=== PATIENT | male | born 1970 | race American Indian/Alaskan Native ===

== ENCOUNTER 2023-08-09 12:05 | Inpatient (IN) | payer OTHER ==
[2023-08-09] MEDS ORDERED: DICYCLOMINE HCL 10 MG CAPSULE PO PRN (13:12)
[2023-08-09] MEDS ORDERED: NALOXONE HCL (KLOXXADO) 8 MG SPRAY NS PRN (13:12)
[2023-08-09] MEDS ORDERED: NALOXONE HCL 0.4 MG/ML VIAL IM PRN (13:12)
[2023-08-09] MEDS ORDERED: guaiFENesin 600 MG TABLET.ER (FP) PO PRN (13:12)
[2023-08-09] MEDS ORDERED: IBUPROFEN 600 MG TABLET (FP) PO PRN (13:12)
[2023-08-09] MEDS ORDERED: IBUPROFEN 400 MG TABLET (FP) PO PRN (13:12)
[2023-08-09] MEDS ORDERED: BISMUTH SUBSALICYLATE 524 MG/30 ML PO PRN (13:12)
[2023-08-09] MEDS ORDERED: ONDANSETRON *ODT* 4 MG TABLET SL PRN (13:12)
[2023-08-09] MEDS ORDERED: ACETAMINOPHEN 325 MG TABLET (FP) PO PRN (13:12)
[2023-08-09] MEDS ORDERED: POLYETHYLENE GLYCOL (HEALTHYLAX) 3350 17 GM PACKET PO PRN (13:12)
[2023-08-09] MEDS ORDERED: MAGNESIUM HYDROX 2400MG/30ML ORAL SUSPENSION 30 ML CUP PO PRN (13:12)
[2023-08-09] MEDS ORDERED: LOPERAMIDE HCL 2 MG CAPSULE PO PRN (13:12)
[2023-08-09] MEDS ORDERED: BENZONATATE 200 MG CAPSULE PO PRN (13:12)
[2023-08-09] MEDS ORDERED: BENZOCAINE/MENTHOL (CHLORASEPTIC ) LOZENGE MM PRN (13:12)
[2023-08-09] MEDS ORDERED: MAG HYDROX/AL HYDROX/SIMETH 30 ML UNIT-DOSE CUP PO PRN (13:12)
[2023-08-09 13:26] VITALS: BMI 18.7
[2023-08-09] MEDS: PRENATAL VITAMINS W/ FOLIC ACID TABLET (FP) PO SCH (14:48)
[2023-08-09] MEDS: METHOCARBAMOL 500 MG TABLET PO PRN (22:12)
[2023-08-09] MEDS: THIAMINE HCL 100 MG TABLET (FP) PO SCH (22:12)
[2023-08-09] MEDS: hydrOXYzine PAMOATE 25 MG CAPSULE (FP) PO PRN (22:12)
[2023-08-09] MEDS: MELATONIN 5 MG TABLETS PO SCH (22:12)
[2023-08-10] MEDS ORDERED: diazePAM 5 MG TABLET PO PRN (10:25)
[2023-08-10 10:26] LABS: HEMATOCRIT 35.6 % (35.4-49); MCH 30.9 pg (25.7-33.7); MCHC 33.6 g/dl (32.0-35.9); MEAN PLT VOLUME 8.8 fl (7.5-11.1); PLATELET COUNT 237 10^3/uL (134-434); RBC 3.87 M/mm3 (4.00-5.60); RDW 13.8 % (11.9-15.9); WHITE BLOOD COUNT 6.8 K/mm3 (4.0-10.0)
[2023-08-10] MEDS: PRENATAL VITAMINS W/ FOLIC ACID TABLET (FP) PO SCH (10:31)
[2023-08-10] MEDS: diazePAM 5 MG TABLET PO SCH ×3 (11:03→22:25)
[2023-08-10 11:04] LABS: POTASSIUM 3.4 mmol/L (3.5-5.1)
[2023-08-10] MEDS: METHOCARBAMOL 500 MG TABLET PO PRN (11:04)
[2023-08-10 11:07] LABS: CALCIUM 8.9 mg/dL (8.5-10.1)
[2023-08-10 11:08] LABS: BLOOD UREA NITROGEN 20.1 mg/dL (7-18)
[2023-08-10 11:11] LABS: CREATININE 1.1 mg/dL (0.55-1.3)
[2023-08-10 11:12] LABS: BILIRUBIN,TOTAL 0.3 mg/dL (0.2-1); TOT PROT 5.6 g/dl (6.4-8.2)
[2023-08-10] MEDS: POTASSIUM CHLORIDE ORAL LIQUID 20 MEQ/15 ML PO SCH ×2 (14:08→22:24)
[2023-08-10] MEDS ORDERED: NAPROXEN 500 MG TABLET PO PRN (14:29)
[2023-08-10] MEDS: MELATONIN 5 MG TABLETS PO SCH (22:24)
[2023-08-10] MEDS: THIAMINE HCL 100 MG TABLET (FP) PO SCH (22:25)
[2023-08-11] MEDS: diazePAM 5 MG TABLET PO SCH ×4 (06:17→22:27)
[2023-08-11 08:52] LABS: POTASSIUM 3.6 mmol/L (3.5-5.1)
[2023-08-11 08:58] LABS: BLOOD UREA NITROGEN 14.6 mg/dL (7-18); CALCIUM 8.2 mg/dL (8.5-10.1)
[2023-08-11 09:01] LABS: CREATININE 0.9 mg/dL (0.55-1.3)
[2023-08-11] MEDS: PRENATAL VITAMINS W/ FOLIC ACID TABLET (FP) PO SCH (10:36)
[2023-08-11] MEDS: METHOCARBAMOL 500 MG TABLET PO PRN (10:36)
[2023-08-11] MEDS: hydrOXYzine PAMOATE 25 MG CAPSULE (FP) PO PRN (22:27)
[2023-08-11] MEDS: MELATONIN 5 MG TABLETS PO SCH (22:27)
[2023-08-11] MEDS: THIAMINE HCL 100 MG TABLET (FP) PO SCH (22:27)
[2023-08-12] MEDS: diazePAM 5 MG TABLET PO SCH ×2 (06:29→13:23)
[2023-08-12 09:48] VITALS: BP 115/65; PULSE 68; RESP 18; TEMP 97.5
[2023-08-12] MEDS: PRENATAL VITAMINS W/ FOLIC ACID TABLET (FP) PO SCH (10:21)
[2023-08-13] MEDS ORDERED: diazePAM 5 MG TABLET PO SCH (06:00)
[2023-08-14] MEDS ORDERED: diazePAM 5 MG TABLET PO ONE (06:00)
== END 2023-08-12 11:42 | disposition left against medical advice (07) | DRG 770 ==
LOC: YASAS 12:05 → Y3N 13:54
PROVIDERS: ADMIT Allergy & Immunology; ATTEND Surgery
PROC: HZ2ZZZZ Detoxification Services for Substance Abuse Treatment (ICD-10-PCS; principal; 2023-08-09)
DX: F10.230 Alcohol dependence with withdrawal, uncomplicated (principal); F14.20 Cocaine dependence, uncomplicated; F12.20 Cannabis dependence, uncomplicated; F17.210 Nicotine dependence, cigarettes, uncomplicated; F31.9 Bipolar disorder, unspecified; E87.6 Hypokalemia; G89.28 Other chronic postprocedural pain; Z28.310 Unvaccinated for COVID-19; Z28.9 Immunization not carried out for unspecified reason
CPT/HCPCS: 36415; 80048; 80053; 80307; 85027; 86780; 87635; 87811

== ENCOUNTER 2024-07-07 20:41 | Inpatient (IN) | payer OTHER ==
[2024-07-07 21:08] VITALS: BMI 18.7
[2024-07-08] MEDS ORDERED: ONDANSETRON *ODT* 4 MG TABLET SL PRN (02:19)
[2024-07-08] MEDS ORDERED: DICYCLOMINE HCL 10 MG CAPSULE PO PRN (02:19)
[2024-07-08] MEDS ORDERED: IBUPROFEN 400 MG TABLET (FP) PO PRN (02:19)
[2024-07-08] MEDS ORDERED: NALOXONE (NYS OPIOID OVERDOSE PROGRAM) 4 MG/0.1 ML SPRAY NS PRN (02:19)
[2024-07-08] MEDS ORDERED: ACETAMINOPHEN 325 MG TABLET (FP) PO PRN (02:19)
[2024-07-08] MEDS ORDERED: MAGNESIUM HYDROX 2400MG/30ML ORAL SUSPENSION 30 ML CUP PO PRN (02:19)
[2024-07-08] MEDS ORDERED: BISMUTH SUBSALICYLATE 524 MG/30 ML PO PRN (02:19)
[2024-07-08] MEDS ORDERED: MAG HYDROX/AL HYDROX/SIMETH 30 ML UNIT-DOSE CUP PO PRN (02:19)
[2024-07-08] MEDS ORDERED: POLYETHYLENE GLYCOL (HEALTHYLAX) 3350 17 GM PACKET PO PRN (02:19)
[2024-07-08] MEDS ORDERED: LOPERAMIDE HCL 2 MG CAPSULE PO PRN (02:19)
[2024-07-08] MEDS ORDERED: NALOXONE (NARCAN) HCL 4 MG/0.1 ML SPRAY NS PRN (02:19)
[2024-07-08] MEDS ORDERED: IBUPROFEN 600 MG TABLET (FP) PO PRN (02:19)
[2024-07-08] MEDS: PRENATAL VITAMINS W/ FOLIC ACID TABLET (FP) PO SCH (10:03)
[2024-07-08] MEDS: THIAMINE 100 MG TABLET PO SCH (22:39)
[2024-07-08] MEDS: MELATONIN 5 MG TABLETS PO SCH (22:39)
[2024-07-09] MEDS ORDERED: chlordiazePOXIDE HCL 25 MG CAPSULE PO PRN (08:34)
[2024-07-09] MEDS: METHOCARBAMOL 500 MG TABLET PO PRN (10:22)
[2024-07-09] MEDS: chlordiazePOXIDE HCL 25 MG CAPSULE PO SCH (10:22)
[2024-07-09 12:36] LABS: HEMATOCRIT 36.2 % (35.4-49); HEMOGLOBIN 11.8 GM/dL (11.7-16.9); MCH 30.5 pg (25.7-33.7); MCHC 32.6 g/dl (32.0-35.9); MEAN CELL VOLUME 93.6 fl (80-96); PLATELET COUNT 284 10^3/uL (134-434); RBC 3.86 M/mm3 (4.00-5.60); WHITE BLOOD COUNT 6.2 K/mm3 (4.0-10.0)
[2024-07-09 14:05] LABS: POTASSIUM 3.9 mmol/L (3.5-5.1)
[2024-07-09 14:10] LABS: BLOOD UREA NITROGEN 16.9 mg/dL (7-18)
[2024-07-09 14:11] LABS: ALBUMIN 2.9 g/dl (3.4-5.0)
[2024-07-09 14:15] LABS: BILIRUBIN,TOTAL 0.8 mg/dL (0.2-1); TOT PROT 5.8 g/dl (6.4-8.2)
[2024-07-09 14:18] LABS: CREATININE 0.9 mg/dL (0.55-1.3)
[2024-07-09] MEDS: BENZONATATE 200 MG CAPSULE PO PRN (17:08)
[2024-07-09] MEDS: BENZOCAINE/MENTHOL (CHLORASEPTIC ) LOZENGE MM PRN (17:09)
[2024-07-09] MEDS: guaiFENesin 600 MG TABLET.ER (FP) PO PRN (22:16)
[2024-07-10 11:32] LABS: PH,URINE 7.5 (5.0-8.0); URINE APPEARANCE CLEAR; URINE BILIRUBIN NEGATIVE (NEGATIVE); URINE COLOR YELLOW; URINE GLUCOSE (UA) NEGATIVE (NEGATIVE); URINE KETONE NEGATIVE (NEGATIVE); URINE LEUK ESTERASE NEGATIVE (NEGATIVE); URINE NITRITE NEGATIVE (NEGATIVE); URINE PROTEIN NEGATIVE (NEGATIVE); URINE UROBILINOGEN 0.2 mg/dL (0.2-1.0)
[2024-07-11] MEDS: chlordiazePOXIDE HCL 25 MG CAPSULE PO SCH (05:45)
[2024-07-12] MEDS ORDERED: chlordiazePOXIDE HCL 10 MG CAPSULE PO PRN
[2024-07-12] MEDS: chlordiazePOXIDE HCL 10 MG CAPSULE PO SCH (05:35)
[2024-07-13] MEDS: chlordiazePOXIDE HCL 10 MG CAPSULE PO SCH (05:35)
[2024-07-14] MEDS: chlordiazePOXIDE HCL 10 MG CAPSULE PO ONE (05:35)
[2024-07-15] MEDS: hydrOXYzine PAMOATE 25 MG CAPSULE (FP) PO PRN (21:27)
[2024-07-16 08:53] VITALS: BP 98/52; PULSE 85; RESP 18; TEMP 97.5
== END 2024-07-16 12:04 | disposition other institution (70) | DRG 774 ==
LOC: YASAS 20:41 → Y3N 07-08 02:33
PROVIDERS: ADMIT Allergy & Immunology; ATTEND Surgery
PROC: HZ2ZZZZ Detoxification Services for Substance Abuse Treatment (ICD-10-PCS; principal; 2024-07-08)
DX: F10.230 Alcohol dependence with withdrawal, uncomplicated (principal); F14.20 Cocaine dependence, uncomplicated; F12.20 Cannabis dependence, uncomplicated; F17.210 Nicotine dependence, cigarettes, uncomplicated; F31.9 Bipolar disorder, unspecified; F41.9 Anxiety disorder, unspecified; M54.50 Low back pain, unspecified; G89.29 Other chronic pain; R26.89 Other abnormalities of gait and mobility; Z56.0 Unemployment, unspecified; Z59.00 Homelessness unspecified; Z88.8 Allergy status to other drugs, medicaments and biological substances
CPT/HCPCS: 36415; 80053; 80305; 80307; 81003; 85027; 86780; 87811

== ENCOUNTER 2024-07-12 11:06 | Emergency (ER) | payer OTHER ==
[2024-07-12 11:46] VITALS: BP 102/53; PULSE 75; RESP 18; TEMP 97.9
[2024-07-12 14:23] LABS: HEMOGLOBIN 11.9 GM/dL (11.7-16.9); MCH 30.6 pg (25.7-33.7); WHITE BLOOD COUNT 6.9 K/mm3 (4.0-10.0)
[2024-07-12 14:26] LABS: BASO % 0.8 % (0-2.0); EOS % 2.4 % (0-4.5); HEMATOCRIT 36.2 % (35.4-49); LYMPH % 27.5 % (8-40); MEAN CELL VOLUME 92.8 fl (80-96); MEAN PLT VOLUME 8.4 fl (7.5-11.1); MONO % 9.6 % (3.8-10.2); NEUT % 59.7 % (42.8-82.8); PLATELET COUNT 325 10^3/uL (134-434); RDW 15.2 % (11.9-15.9)
[2024-07-12 14:43] LABS: POTASSIUM 4.1 mmol/L (3.5-5.1)
[2024-07-12 14:45] LABS: CALCIUM 9.1 mg/dL (8.5-10.1)
[2024-07-12 14:46] LABS: ALBUMIN 2.9 g/dl (3.4-5.0); BLOOD UREA NITROGEN 18.2 mg/dL (7-18)
[2024-07-12 14:49] LABS: CREATININE 0.9 mg/dL (0.55-1.3)
[2024-07-12 14:50] LABS: BILIRUBIN,TOTAL 0.4 mg/dL (0.2-1)
[2024-07-12 14:51] LABS: TOT PROT 6.2 g/dl (6.4-8.2)
[2024-07-12 15:43] LABS: HIV INTERPRETATION NEGATIVE (NEGATIVE)
== END 2024-07-12 16:32 ==
LOC: JER 11:06
DX: M54.50 Low back pain, unspecified (principal); R53.1 Weakness; R42 Dizziness and giddiness
CPT/HCPCS: 36415; 70450-TC; 72131-TC; 80053; 85025; 86803; 87389; 93005; 93010; 99285-25

== ENCOUNTER 2024-07-16 12:09 | Inpatient (IN) | payer OTHER ==
[2024-07-16] MEDS ORDERED: BENZOCAINE/MENTHOL (CHLORASEPTIC ) LOZENGE MM PRN (14:04)
[2024-07-16] MEDS ORDERED: BENZONATATE 200 MG CAPSULE PO PRN (14:04)
[2024-07-16] MEDS ORDERED: NALOXONE HCL 0.4 MG/ML VIAL IVPUSH PRN (14:04)
[2024-07-16] MEDS ORDERED: NALOXONE (NARCAN) HCL 4 MG/0.1 ML SPRAY NS PRN (14:04)
[2024-07-16] MEDS ORDERED: IBUPROFEN 400 MG TABLET (FP) PO PRN (14:04)
[2024-07-16] MEDS ORDERED: guaiFENesin 600 MG TABLET.ER (FP) PO PRN (14:04)
[2024-07-16] MEDS ORDERED: POLYETHYLENE GLYCOL (HEALTHYLAX) 3350 17 GM PACKET PO PRN (14:04)
[2024-07-16] MEDS ORDERED: MAGNESIUM HYDROX 2400MG/30ML ORAL SUSPENSION 30 ML CUP PO PRN (14:04)
[2024-07-16] MEDS ORDERED: MAG HYDROX/AL HYDROX/SIMETH 30 ML UNIT-DOSE CUP PO PRN (14:04)
[2024-07-16] MEDS ORDERED: LOPERAMIDE HCL 2 MG CAPSULE PO PRN (14:04)
[2024-07-16] MEDS: MELATONIN 5 MG TABLETS PO SCH (21:10)
[2024-07-16] MEDS: THIAMINE 100 MG TABLET PO SCH (21:11)
[2024-07-16] MEDS: hydrOXYzine PAMOATE 25 MG CAPSULE (FP) PO PRN (21:11)
[2024-07-16] MEDS: METHOCARBAMOL 500 MG TABLET PO PRN (21:11)
[2024-07-17] MEDS: PRENATAL VITAMINS W/ FOLIC ACID TABLET (FP) PO SCH (10:40)
[2024-07-18] MEDS: BACLOFEN 10 MG TABLET (FP) PO SCH (12:01)
[2024-07-18] MEDS: GABAPENTIN 100 MG CAPSULE PO SCH (14:59)
[2024-07-19] MEDS: IBUPROFEN 600 MG TABLET (FP) PO PRN (15:26)
[2024-07-21] MEDS: ACETAMINOPHEN 325 MG TABLET (FP) PO PRN (14:13)
[2024-07-22] MEDS: GABAPENTIN 100 MG CAPSULE PO SCH (14:53)
[2024-07-23] MEDS: GABAPENTIN 400 MG CAPSULE PO SCH (21:11)
[2024-07-25 06:31] VITALS: RESP 16; TEMP 97.7
[2024-07-25 11:44] VITALS: BP 118/66; PULSE 82
== END 2024-07-25 18:10 | disposition left against medical advice (07) | DRG 772 ==
LOC: YASAS 12:09 → Y3NR 12:17 → Y5N 07-17 11:39
PROVIDERS: ADMIT Psychiatry & Neurology Pain Medicine; ATTEND Psychiatry & Neurology Pain Medicine
PROC: HZ42ZZZ Group Counseling for Substance Abuse Treatment, Cognitive-Behavioral (ICD-10-PCS; principal; 2024-07-16)
DX: F14.20 Cocaine dependence, uncomplicated (principal); F10.20 Alcohol dependence, uncomplicated; F12.20 Cannabis dependence, uncomplicated; F32.A Depression, unspecified; F41.9 Anxiety disorder, unspecified; M47.896 Other spondylosis, lumbar region; M54.50 Low back pain, unspecified; G89.29 Other chronic pain; M79.672 Pain in left foot; R60.0 Localized edema; F91.8 Other conduct disorders; Z91.199 Patient's noncompliance with other medical treatment and regimen due to unspecified reason; Z87.891 Personal history of nicotine dependence
CPT/HCPCS: 73610-TC-LT-FY; 73630-TC-LT; J0475